=== PATIENT | female | born 1950 | race Caucasian/White ===

== ENCOUNTER 2019-09-08 13:30 | Inpatient (IN) | payer MEDICARE, MEDICAID ==
[~2019-09-08] VITALS: Ht 157.5 cm; Wt 56.7 kg
[~2019-09-08 13:30] MED LIST: ALEN70TA68 PO; APIX5TAB PO; ASPI325T85 PO; ATEN50TA; DIFL5DRO EACHEYE; ERGO2000 PO; FAMO10TA PO; HYDR200T35 MT; MECL25TA3 PO; MESA400T14 PO; MIRT-91 MT; PRED10TA23 PO; RANI150T7 PO; URSO300C7 PO
[2019-09-08] MEDS ORDERED: SODIUM CHLORIDE 0.9% 1,000 ML IV ONE (14:05)
[2019-09-08] MEDS ORDERED: ONDANSETRON HCL 4MG/2ML INJ IV STA (14:05)
[2019-09-08] MEDS ORDERED: KETOROLAC 15MG/ML VIAL IV ONE (14:15)
[2019-09-08 14:37] LABS: BASOPHILS % 0.5 % (0.0-2.0); EOSINOPHILS % 0.5 % (0.0-5.0); HEMATOCRIT. 42.3 % (36.0-48.0); HEMOGLOBIN. 14.2 g/dL (12.0-16.0); LYMPHOCYTES % 9.2 % (20.0-50.0); MEAN CORPUSCULAR HEMOGLOBIN 30.2 pg (28.0-32.0); MEAN PLATELET VOLUME 8.6 fl (7.4-10.4); MONOCYTES % 5.1 % (2.0-8.0); NEUTROPHILS % 84.7 % (40.0-76.0); PLATELET 141 x1000/uL (130-400); RED CELL DISTRIBUTION WIDTH 13.2 % (11.6-14.6)
[2019-09-08 14:44] LABS: CHLORIDE 111 mEq/L (98-107)
[2019-09-08 14:46] LABS: INR 1.1; PARTIAL THROMBOPLASTIN TIME 29.4 sec (23.4-31.0); PROTHROMBIN TIME 11.4 sec (9.6-11.0)
[2019-09-08 16:02] LABS: CLARITY URINE CLEAR (CLEAR); COLOR URINE YELLOW (YELLOW); KETONES URINE NEGATIVE (NEGATIVE); LEUKOCYTE ESTERASE URINE NEGATIVE (NEGATIVE); NITRITE URINE NEGATIVE (NEGATIVE); OCCULT BLOOD URINE NEGATIVE (NEGATIVE); PH URINE 6.5 (4.5-8.0); PROTEIN URINE NEGATIVE (NEGATIVE); SPECIFIC GRAVITY URINE 1.007 (1.005-1.030); UROBILINOGEN URINE 0.2 E.U./dL (0.2-1.0)
[2019-09-08] MEDS ORDERED: ONDANSETRON HCL 4MG/2ML INJ IV PRN (21:15)
[2019-09-08 22:00] VITALS: BP 138/74
[2019-09-08] MEDS: MECLIZINE 25MG TABLET PO SCH (22:00)
[2019-09-08] MEDS: MESALAMINE 400 MG CAPSULE.DR PO SCH (23:00)
[2019-09-08] MEDS: APIXABAN 5 MG TABLET PO SCH (23:00)
[2019-09-08 23:17] VITALS: BP 138/74
[2019-09-09] VITALS: BP 161/106
[2019-09-09] MEDS ORDERED: NON FORMULARY PATIENT HOME MED XX SCH (00:15)
[2019-09-09] MEDS ORDERED: DIPHENHYDRAMINE 50MG/ML VIAL IV SCH (00:15)
[2019-09-09] MEDS: SODIUM CHLORIDE 0.9% 1,000 ML IV SCH ×2 (00:23→17:43)
[2019-09-09] MEDS ORDERED: METO25TA6 PO (01:36)
[2019-09-09 04:00] VITALS: BP 132/68
[2019-09-09] MEDS: MECLIZINE 25MG TABLET PO SCH ×4 (05:49→21:47)
[2019-09-09 07:47] LABS: BASOPHILS % 0.6 % (0.0-2.0); EOSINOPHILS % 0.8 % (0.0-5.0); HEMATOCRIT. 39.1 % (36.0-48.0); HEMOGLOBIN. 13.1 g/dL (12.0-16.0); LYMPHOCYTES % 24.7 % (20.0-50.0); MEAN CORPUSCULAR HEMOGLOBIN 30.2 pg (28.0-32.0); MEAN CORPUSCULAR VOLUME 89.8 fL (81.0-99.0); MEAN PLATELET VOLUME 8.6 fl (7.4-10.4); MONOCYTES % 7.5 % (2.0-8.0); NEUTROPHILS % 66.4 % (40.0-76.0); PLATELET 111 x1000/uL (130-400); RED BLOOD CELL COUNT 4.35 mill/uL (4.2-5.4); RED CELL DISTRIBUTION WIDTH 13.1 % (11.6-14.6)
[2019-09-09 08:02] LABS: CHLORIDE 113 mEq/L (98-107)
[2019-09-09] MEDS: HYDROXYCHLOROQUINE SULFATE 200MG TABLET PO SCH ×2 (09:00→17:00)
[2019-09-09] MEDS: URSODIOL 300MG CAPSULE PO SCH (09:00)
[2019-09-09] MEDS: ATENOLOL 50 MG TABLET PO SCH (09:00)
[2019-09-09] MEDS: MESALAMINE 400 MG CAPSULE.DR PO SCH ×2 (09:00→17:00)
[2019-09-09] MEDS: PREDNISONE 10MG TABLET PO SCH (09:00)
[2019-09-09] MEDS: ASPIRIN 325MG EC TABLET PO SCH (09:00)
[2019-09-09] MEDS: APIXABAN 5 MG TABLET PO SCH ×2 (09:00→17:00)
[2019-09-09 16:00] VITALS: BP 110/55
[2019-09-09 20:00] VITALS: BP 101/65
[2019-09-09] MEDS: ZOLPIDEM TARTRATE 5MG TABLET PO PRN (21:47)
[2019-09-10] VITALS: BP 105/51
[2019-09-10 04:00] VITALS: BP 113/52
[2019-09-10] MEDS: MECLIZINE 25MG TABLET PO SCH ×3 (05:23→22:57)
[2019-09-10 07:41] LABS: BASOPHILS % 0.4 % (0.0-2.0); EOSINOPHILS % 1.2 % (0.0-5.0); HEMATOCRIT. 41.4 % (36.0-48.0); HEMOGLOBIN. 13.9 g/dL (12.0-16.0); LYMPHOCYTES % 22.4 % (20.0-50.0); MEAN CORPUSCULAR HEMOGLOBIN 30.3 pg (28.0-32.0); MEAN CORPUSCULAR VOLUME 90.2 fL (81.0-99.0); MEAN PLATELET VOLUME 8.9 fl (7.4-10.4); MONOCYTES % 8.6 % (2.0-8.0); NEUTROPHILS % 67.4 % (40.0-76.0); PLATELET 101 x1000/uL (130-400); RED BLOOD CELL COUNT 4.59 mill/uL (4.2-5.4); RED CELL DISTRIBUTION WIDTH 13.5 % (11.6-14.6)
[2019-09-10 08:00] VITALS: BP 131/78
[2019-09-10 08:12] LABS: CHLORIDE 113 mEq/L (98-107)
[2019-09-10] MEDS: ASPIRIN 325MG EC TABLET PO SCH (09:17)
[2019-09-10] MEDS: MESALAMINE 400 MG CAPSULE.DR PO SCH ×2 (09:17→16:51)
[2019-09-10] MEDS: HYDROXYCHLOROQUINE SULFATE 200MG TABLET PO SCH ×2 (09:17→16:51)
[2019-09-10] MEDS: URSODIOL 300MG CAPSULE PO SCH (09:18)
[2019-09-10] MEDS: PREDNISONE 10MG TABLET PO SCH (09:18)
[2019-09-10] MEDS: ATENOLOL 50 MG TABLET PO SCH (09:18)
[2019-09-10] MEDS: APIXABAN 5 MG TABLET PO SCH ×2 (09:18→16:51)
[2019-09-10] MEDS ORDERED: POTASSIUM CHLORIDE 20MEQ TABLET SR PO NR (10:15)
[2019-09-10] MEDS: SODIUM CHLORIDE 0.9% 1,000 ML IV SCH (10:41)
[2019-09-10 12:00] VITALS: BP 137/80
[2019-09-10 16:00] VITALS: BP 144/73
[2019-09-10 20:00] VITALS: BP 137/77
[2019-09-10] MEDS: ACETAMINOPHEN 325MG TABLET PO PRN (23:02)
[2019-09-10] MEDS: ZOLPIDEM TARTRATE 5MG TABLET PO PRN (23:44)
[2019-09-11] VITALS: BP 138/75
[2019-09-11 04:00] VITALS: BP 132/74
[2019-09-11] MEDS: MECLIZINE 25MG TABLET PO SCH ×3 (06:32→22:05)
[2019-09-11 08:00] VITALS: BP 142/55
[2019-09-11 08:07] LABS: CHLORIDE 114 mEq/L (98-107)
[2019-09-11 08:13] LABS: LDL CHOLESTEROL 58 mg/dL (5-100)
[2019-09-11 08:15] LABS: HDL CHOLESTEROL 49 mg/dL (40-59)
[2019-09-11] MEDS: URSODIOL 300MG CAPSULE PO SCH (09:19)
[2019-09-11] MEDS: PREDNISONE 10MG TABLET PO SCH (09:19)
[2019-09-11] MEDS: HYDROXYCHLOROQUINE SULFATE 200MG TABLET PO SCH ×2 (09:19→16:56)
[2019-09-11] MEDS: APIXABAN 5 MG TABLET PO SCH ×2 (09:19→16:56)
[2019-09-11] MEDS: ASPIRIN 325MG EC TABLET PO SCH (09:19)
[2019-09-11] MEDS: MESALAMINE 400 MG CAPSULE.DR PO SCH ×2 (09:20→16:56)
[2019-09-11] MEDS: ATENOLOL 50 MG TABLET PO SCH (09:20)
[2019-09-11] MEDS: SODIUM CHLORIDE 0.9% 1,000 ML IV SCH ×2 (09:20→23:27)
[2019-09-11 12:08] VITALS: BP 128/78
[2019-09-11 16:00] VITALS: BP 129/76
[2019-09-11 20:00] VITALS: BP 149/83
[2019-09-11] MEDS: ZOLPIDEM TARTRATE 5MG TABLET PO PRN (22:05)
[2019-09-12] VITALS: BP 168/97
[2019-09-12 04:00] VITALS: BP 132/57
[2019-09-12] MEDS: MECLIZINE 25MG TABLET PO SCH ×3 (05:55→22:21)
[2019-09-12 08:00] VITALS: BP 139/59
[2019-09-12 08:09] LABS: BASOPHILS % 0.6 % (0.0-2.0); EOSINOPHILS % 1.6 % (0.0-5.0); HEMATOCRIT. 40.9 % (36.0-48.0); HEMOGLOBIN. 13.4 g/dL (12.0-16.0); LYMPHOCYTES % 23.1 % (20.0-50.0); MEAN CORPUSCULAR HEMOGLOBIN 29.6 pg (28.0-32.0); MEAN CORPUSCULAR VOLUME 90.6 fL (81.0-99.0); MEAN PLATELET VOLUME 8.7 fl (7.4-10.4); MONOCYTES % 9.2 % (2.0-8.0); NEUTROPHILS % 65.5 % (40.0-76.0); PLATELET 121 x1000/uL (130-400); RED BLOOD CELL COUNT 4.52 mill/uL (4.2-5.4); RED CELL DISTRIBUTION WIDTH 13.2 % (11.6-14.6)
[2019-09-12 08:17] LABS: CHLORIDE 114 mEq/L (98-107)
[2019-09-12] MEDS: URSODIOL 300MG CAPSULE PO SCH (08:41)
[2019-09-12] MEDS: ASPIRIN 325MG EC TABLET PO SCH (08:41)
[2019-09-12] MEDS: MESALAMINE 400 MG CAPSULE.DR PO SCH ×2 (08:41→17:07)
[2019-09-12] MEDS: PREDNISONE 10MG TABLET PO SCH (08:41)
[2019-09-12] MEDS: APIXABAN 5 MG TABLET PO SCH ×2 (08:41→17:07)
[2019-09-12] MEDS: HYDROXYCHLOROQUINE SULFATE 200MG TABLET PO SCH ×2 (08:41→17:07)
[2019-09-12] MEDS: ATENOLOL 50 MG TABLET PO SCH (08:44)
[2019-09-12 12:00] VITALS: BP 134/84
[2019-09-12 16:00] VITALS: BP 139/76
[2019-09-12] MEDS: SODIUM CHLORIDE 0.9% 1,000 ML IV SCH (18:20)
[2019-09-12] MEDS: ACETAMINOPHEN 325MG TABLET PO PRN (18:23)
[2019-09-12 20:00] VITALS: BP 141/82
[2019-09-12] MEDS: ZOLPIDEM TARTRATE 5MG TABLET PO PRN (22:21)
[2019-09-13] VITALS: BP 128/68
[2019-09-13 04:00] VITALS: BP 133/83
[2019-09-13] MEDS: MECLIZINE 25MG TABLET PO SCH ×3 (06:24→22:18)
[2019-09-13] MEDS ORDERED: METOCLOPRAMIDE HCL 10MG/2ML VIAL IV SCH (06:45)
[2019-09-13 08:00] VITALS: BP 130/82
[2019-09-13] MEDS: URSODIOL 300MG CAPSULE PO SCH (09:24)
[2019-09-13] MEDS: PREDNISONE 10MG TABLET PO SCH (09:24)
[2019-09-13] MEDS: ASPIRIN 325MG EC TABLET PO SCH (09:24)
[2019-09-13] MEDS: APIXABAN 5 MG TABLET PO SCH ×2 (09:24→17:47)
[2019-09-13] MEDS: MESALAMINE 400 MG CAPSULE.DR PO SCH ×2 (09:25→17:47)
[2019-09-13] MEDS: ATENOLOL 50 MG TABLET PO SCH (09:25)
[2019-09-13] MEDS: HYDROXYCHLOROQUINE SULFATE 200MG TABLET PO SCH ×2 (09:25→17:46)
[2019-09-13] MEDS: SODIUM CHLORIDE 0.9% 1,000 ML IV SCH (09:27)
[2019-09-13 12:00] VITALS: BP 142/79
[2019-09-13] MEDS ORDERED: IOHEXOL-300 100 ML BOTTLE ONE (14:41)
[2019-09-13] MEDS ORDERED: LOPERAMIDE HCL 2MG CAPSULE PO NR (15:15)
[2019-09-13 16:00] VITALS: BP 124/83
[2019-09-13] MEDS ORDERED: MIRTAZAPINE 30MG TABLET PO PRN (16:00)
[2019-09-13 20:00] VITALS: BP 126/62
[2019-09-13] MEDS: MIRTAZAPINE 15MG TABLET PO PRN (22:18)
[2019-09-13] MEDS: ACETAMINOPHEN 325MG TABLET PO PRN (22:18)
[2019-09-14] VITALS: BP 136/74
[2019-09-14] MEDS: SODIUM CHLORIDE 0.9% 1,000 ML IV SCH ×2 (03:13→14:58)
[2019-09-14 04:00] VITALS: BP 127/69
[2019-09-14] MEDS: MECLIZINE 25MG TABLET PO SCH ×3 (06:00→22:32)
[2019-09-14 07:08] LABS: BASOPHILS % 0.9 % (0.0-2.0); EOSINOPHILS % 2.1 % (0.0-5.0); HEMATOCRIT. 36.4 % (36.0-48.0); HEMOGLOBIN. 12.4 g/dL (12.0-16.0); LYMPHOCYTES % 33.1 % (20.0-50.0); MEAN CORPUSCULAR HEMOGLOBIN 30.1 pg (28.0-32.0); MEAN CORPUSCULAR VOLUME 88.3 fL (81.0-99.0); MEAN PLATELET VOLUME 8.6 fl (7.4-10.4); MONOCYTES % 8.6 % (2.0-8.0); NEUTROPHILS % 55.3 % (40.0-76.0); PLATELET 110 x1000/uL (130-400); RED BLOOD CELL COUNT 4.12 mill/uL (4.2-5.4); RED CELL DISTRIBUTION WIDTH 13.3 % (11.6-14.6)
[2019-09-14 07:34] LABS: CHLORIDE 115 mEq/L (98-107)
[2019-09-14 08:00] VITALS: BP 124/64
[2019-09-14] MEDS ORDERED: LOPERAMIDE HCL 2MG CAPSULE PO PRN (09:00)
[2019-09-14] MEDS: PREDNISONE 10MG TABLET PO SCH (09:35)
[2019-09-14] MEDS: ASPIRIN 325MG EC TABLET PO SCH (09:35)
[2019-09-14] MEDS: APIXABAN 5 MG TABLET PO SCH ×2 (09:35→17:23)
[2019-09-14] MEDS: HYDROXYCHLOROQUINE SULFATE 200MG TABLET PO SCH ×2 (09:35→17:23)
[2019-09-14] MEDS: MESALAMINE 400 MG CAPSULE.DR PO SCH ×2 (09:35→17:22)
[2019-09-14] MEDS: ATENOLOL 50 MG TABLET PO SCH (09:35)
[2019-09-14] MEDS: URSODIOL 300MG CAPSULE PO SCH (09:35)
[2019-09-14 12:00] VITALS: BP 116/56
[2019-09-14] MEDS ORDERED: POTASSIUM CHLORIDE 20MEQ TABLET SR PO ONE (14:45)
[2019-09-14] MEDS ORDERED: POTASSIUM CHLORIDE INJ 40 MEQ in DEXT 5% WATER 500 ML IV ONE (15:00)
[2019-09-14 16:00] VITALS: BP 140/77
[2019-09-14 20:00] VITALS: BP 130/74
[2019-09-14] MEDS: MIRTAZAPINE 15MG TABLET PO PRN (22:32)
[2019-09-15] VITALS: BP 140/89
[2019-09-15] MEDS: SODIUM CHLORIDE 0.9% 1,000 ML IV SCH (00:07)
[2019-09-15 04:00] VITALS: BP 130/87
[2019-09-15] MEDS: MECLIZINE 25MG TABLET PO SCH (06:10)
[2019-09-15 08:52] VITALS: BP 131/75
[2019-09-15] MEDS: HYDROXYCHLOROQUINE SULFATE 200MG TABLET PO SCH (09:09)
[2019-09-15] MEDS: APIXABAN 5 MG TABLET PO SCH (09:10)
[2019-09-15] MEDS: ASPIRIN 325MG EC TABLET PO SCH (09:10)
[2019-09-15] MEDS: ATENOLOL 50 MG TABLET PO SCH (09:11)
[2019-09-15] MEDS: MESALAMINE 400 MG CAPSULE.DR PO SCH (09:11)
[2019-09-15] MEDS: PREDNISONE 10MG TABLET PO SCH (09:11)
[2019-09-15] MEDS: URSODIOL 300MG CAPSULE PO SCH (09:11)
[2019-09-15] MEDS ORDERED: ONDANSETRON HCL 4MG/2ML INJ IV PRN (09:15)
[2019-09-15] MEDS ORDERED: MORPHINE SULFATE 4 MG/ML CPJ (NOT FOR IM USE) IV PRN (09:15)
[2019-09-15] MEDS ORDERED: DEXT 5%/0.45% NACL KCL 20MEQ/L 1,000 ML IV SCH (10:30)
[2019-09-16] MEDS ORDERED: ENOXAPARIN 40MG/0.4ML SYR SUBCUT SCH (09:00)
== END 2019-09-15 10:43 | disposition home or self-care (01) | DRG 388 ==
LOC: ER 13:30 → 5WST 17:41 → ENRESERV 20:39 → CANBEDREQ 09-09 09:43
PROVIDERS: ADMIT Internal Medicine; ATTEND Internal Medicine
DX: K56.609 Unspecified intestinal obstruction, unspecified as to partial versus complete obstruction (principal); I50.21 Acute systolic (congestive) heart failure; K52.9 Noninfective gastroenteritis and colitis, unspecified; K57.30 Diverticulosis of large intestine without perforation or abscess without bleeding; K44.9 Diaphragmatic hernia without obstruction or gangrene; J45.909 Unspecified asthma, uncomplicated; E78.5 Hyperlipidemia, unspecified; I11.0 Hypertensive heart disease with heart failure; I48.91 Unspecified atrial fibrillation; K74.3 Primary biliary cirrhosis; K83.8 Other specified diseases of biliary tract; N81.10 Cystocele, unspecified; E78.00 Pure hypercholesterolemia, unspecified; Z86.73 Personal history of transient ischemic attack (TIA), and cerebral infarction without residual deficits; Z90.49 Acquired absence of other specified parts of digestive tract; Z79.899 Other long term (current) drug therapy; Z79.01 Long term (current) use of anticoagulants; Z95.0 Presence of cardiac pacemaker; Z88.6 Allergy status to analgesic agent; Z79.82 Long term (current) use of aspirin; Z98.51 Tubal ligation status
CPT/HCPCS: 36415; 71045; 74018; 74176; 74177; 76700; 80048; 80053; 80061; 80076; 81003; 82105; 82977; 83735; 83880; 84443; 84484; 85025; 86301; 93005; 93970; 96374; 97162; 99285; J1200; J1885; J2405; J2765; J3480; J7030; J7060; J7512; J8597; Q9967